=== PATIENT | female | born 1955 | race Caucasian/White ===

== ENCOUNTER 2019-02-10 16:54 | Emergency (ER) | payer MEDICARE, OTHER ==
[2019-02-10] MEDS ORDERED: 0.9 % SODIUM CHLORIDE 1,000 ML BAG IV ONE (17:21)
[2019-02-10] MEDS ORDERED: ONDANSETRON HCL IV 4 MG/2 ML VIAL IV ONE (17:21)
[2019-02-10] MEDS ORDERED: ACETAMINOPHEN 1,000 MG/100 ML BTL IVPB ONE (17:23)
--- NOTE | 2019-02-10 17:27 | Emergency Department Record ---
History of Present Illness - General Chief Complaint: Back Pain/Injury Stated Complaint: BACK PAIN AND NAUSEA Time Seen by Provider: 02/10/19 17:09 Source: Patient Mode of Arrival: Ambulatory Limitations: No limitations - History of Present Illness Initial Comments: The patient is here due to not feeling well for 3 weeks which has gotten a lot worse the last few days. She has had intermittent aching L flank pain for the 3 weeks with nausea, fatigue and anorexia. The pain does radiate around the side to near the spine at times. The patient has had a significant lack of energy and also has had a gradually worsening frontal TREJO L>R side for a week. There has been no fever, neck pain, visual changes, vomiting, new diarrhea, or dysuria. The patient does have a hx of significant Ulcerative Colitis but that has not been an issue recently. She did have an abdominal CT on 02/02/19 and that did demonstrate possible chronic appendicitis in the RLQ or a mucocele of the appendix. Since the CT the patient was started on Cipro and Flagyl by her PCP and has denied having any RLQ AP. MD Complaint: Other Onset/Timin -: Week(s) Severity scale (1-10): 8 Consistency: Constant Treatment Prior to Arrival Comment:: Tylenol #3 at 1100 - Related Data Home Medications Medication Instructions Recorded Confirmed Last Taken Acetaminop W/ Codeine 300/30Mg 1 tab PO Q6H 02/10/19 02/10/19 02/10/19 11:00 [Tylenol #3] 2 tab Ciprofloxacin HCl [Cipro] 500 mg PO Q12HR 02/10/19 02/10/19 02/10/19 Cyclobenzaprine HCl [Flexeril] 10 mg PO QHS 02/10/19 02/10/19 1 Day Ago ~02/09/19 Esomeprazole Magnesium [Nexium 20 mg PO DAILY 02/10/19 02/10/19 02/10/19 24Hr] Evolocumab [Repatha Syringe] 140 mg SQ ASDIR 02/10/19 02/10/19 Unknown Ezetimibe 10 mg PO DAILY 02/10/19 02/10/19 02/10/19 Hydroxychloroquine Sulfate 200 mg PO DAILY 02/10/19 02/10/19 02/10/19 [Plaquenil] 200mg Infliximab [Remicade] 100 mg IV MONTHLY 02/10/19 02/10/19 Unknown Levothyroxine Sodium 50 mcg PO DAILY 02/10/19 02/10/19 02/10/19 Mesalamine 1.2 gm PO BID 02/10/19 02/10/19 02/10/19 Metoprolol Succinate 100 mg PO DAILY 02/10/19 02/10/19 02/10/19 Metronidazole [Flagyl] 500 mg PO DAILY 02/10/19 02/10/19 02/10/19 Pitavastatin Calcium [Livalo] 4 mg PO DAILY 02/10/19 02/10/19 02/10/19 Pregabalin [Lyrica] 150 mg PO DAILY 02/10/19 02/10/19 02/10/19 Simethicone [Anti-Gas] 180 mg PO DAILY 02/10/19 02/10/19 Unknown Tramadol HCl 1 tab PO TID PRN 02/10/19 02/10/19 02/10/19 Zolpidem Tartrate 10 mg PO QHS 02/10/19 02/10/19 1 Day Ago ~02/09/19 Allergies Allergy/AdvReac Type Severity Reaction Status Date / Time No Known Drug Allergies Allergy Verified 02/10/19 17:13 Travel Screening - Travel/Exposure Within Last 30 Days Have you traveled within the last 30 days?: No - Travel/Exposure Within Last Year Have you traveled outside the [place] in the last year?: No - Additonal Travel Details Have you been exposed to anyone with a communicable illness?: No - Travel Symptoms Symptom Screening: Headache, Fatigue Review of Systems Constitutional: Reports: Malaise. Denies: Chills, Fever Eyes: Denies: Eye discharge ENT: Denies: Congestion Respiratory: Denies: Cough Cardiovascular: Denies: Chest pain Endocrine: Reports: Fatigue Gastrointestinal: Reports: Nausea. Denies: Diarrhea, Vomiting Genitourinary: Denies: Dysuria Musculoskeletal: Reports: Back pain. Denies: Arthralgia Skin: Denies: Bruising Past Medical History - SOCIAL HISTORY Smoking Status: Former smoker Alcohol Use: None, Occasional Drug Use: None - RESPIRATORY Hx Respiratory Disorders: Yes Hx Pneumonia: Yes (20 years ago) - CARDIOVASCULAR Hx Cardio Disorders: Yes Hx Chest Pain: Yes (10 years ago) Hx Hypertension: Yes - NEURO Hx Neuro Disorders: No - GI Hx GI Disorders: Yes Hx Reflux: Yes Hx Rectal Bleeding: Yes Comment:: ulcerative colitis - Hx Genitourinary Disorders: No - ENDOCRINE Hx Endocrine Disorders: Yes Hx Thyroid Disease: Yes - MUSCULOSKELETAL Hx Musculoskeletal Disorders: Yes Hx Arthritis: Yes (RA) Hx Fibromyalgia: Yes - PSYCH Hx Psych Problems: Yes Hx Anxiety: Yes - HEMATOLOGY/ONCOLOGY Hx Hematology/Oncology Disorders: No Family Medical History Any Significant Family History?: Yes Hx Cancer: Father *Cancer Comment: brain Hx Heart Disease: Father Hx HTN: Mother Physical Exam - General General Appearance: Alert, Oriented x3, Cooperative, No acute distress - Head Head exam: Atraumatic, Normocephalic, Normal inspection - Eye Eye exam: Normal appearance, PERRL - ENT Throat exam: Normal inspection. negative: Tonsillar erythema, Tonsillar exudate - Neck Neck exam: Normal inspection, Full ROM. negative: Tenderness - Respiratory Respiratory exam: Normal lung sounds bilaterally. negative: Respiratory distress - Cardiovascular Cardiovascular Exam: Regular rate, Normal rhythm, Normal heart sounds - GI/Abdominal GI/Abdominal exam: Soft, Tenderness (There is mild LUQ tenderness.). negative: Distended, Rigid - Extremities Extremities exam: Normal inspection, Full ROM, Normal capillary refill. negative: Tenderness - Back Back exam: Reports: Normal inspection. Denies: Paraspinal tenderness, Vertebral tenderness - Neurological Neurological exam: Alert, Normal gait, Oriented X3. negative: Abnormal gait, Altered, Motor sensory deficit - Skin Skin exam: negative: Rash Course Vital Signs 02/10/19 17:01 Temperature 97.8 F Pulse Rate 96 H Respiratory 17 Rate Blood Pressure 162/94 Pulse Ox 100 - Reevaluation(s) Reevaluation #1: The patient is doing better at this time and states the pain is improved. I did discuss the lab and xray results with the patient and did recommend F/U next week due to the Head CT and Abd. CT findings. I also did discuss the findings with Dr. Covarrubias and he would like to see the patient in the office on Thursday. I also did discuss the case with Dr. Reece and he agrees the plan for F/U next week. 02/10/19 19:01 Medical Decision Making - Data Complexity MDM Data: Labs Ordered and/or Reviewed, X-Ray Ordered and/or Reviewed, EKG Ordered and/or Reviewed - Lab Data Result diagrams: 02/10/19 17:40 02/10/19 17:40 - EKG Data -: EKG Interpreted by Me EKG: No Acute Changes (EKG: NSR at 89, possible Q waves III, AVF. 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 Abd CT: neg for LUQ abnormalities. Appendiceal mucoceole. ) Disposition Disposition: Discharge Clinical Impression: Abdominal pain Qualifiers: Abdominal location: left upper quadrant Qualified Code(s): R10.12 - Left upper quadrant pain Disposition: Home, Self-Care Condition: (2) Stable Instructions: Abdominal Pain (ED) Additional Instructions: Please continue your home pain medicines and your regular medicines. Please see your family doctor early next week for recheck and also see Dr. Covarrubias in the [facility] on Thursday. Return to the ER for any worsening symptoms, pain, fever, or vomiting. Referrals: [facility] [Provider Group] Forms: Patient Portal Access Time of Disposition: 19:20 Quality - Quality Measures Quality Measures: N/A - Blood Pressure Screening View Details: Yes Does Patient Have Any of the Following: Active Dx of HTN Blood Pressure Classification: Hypertensive Reading Systolic Measurement: 162 Diastolic Measurement: 94 Screening for High Blood Pressure: Patient Exclusion, Hx of HTN [[id number]]
[2019-02-10 17:49] LABS: ABSOLUTE NEUTROPHIL COUNT 3.86; HEMATOCRIT 44.1 % (35.0-47.0); HEMOGLOBIN 14.2 gm/dl (11.6-16.0); MEAN CELL VOLUME 87.7 fl (81-97); MEAN CORPUSCULAR HEMOGLOBIN 28.2 pg (27-33); MEAN CORPUSCULAR HGB CONC 32.2 g/dl (32-36); MEAN PLATELET VOLUME 10.4 fl (7.4-10.4); PLATELET COUNT 296 K/uL (130-400); RED BLOOD COUNT 5.03 M/uL (3.80-5.40); RED CELL DISTRIBUTION WIDTH 15.1 % (11.5-14.5); WHITE BLOOD COUNT W/O DIFF 6.6 K/uL (4.2-12.2)
[2019-02-10 17:57] LABS: PLATELET ESTIMATE NORMAL (NORMAL)
[2019-02-10 18:03] LABS: BLOOD UREA NITROGEN 5 mg/dL (8-23); CREATININE 0.5 mg/dL (0.5-0.9); EST GLOMERULAR FILTRATION RATE > 60 mL/min; LIPASE 16 U/L (13-60); TOTAL PROTEIN 7.6 g/dL (6.6-8.7)
[2019-02-10 18:05] LABS: GLUCOSE,RANDOM 105 mg/dL (74-109)
[2019-02-10 18:08] LABS: ALBUMIN 4.2 g/dL (4.0-5.0); ALKALINE PHOSPHATASE 61 U/L (35-104); ALT/SGPT 20 U/L (<33); AST/SGOT 31 U/L (10.0-35.0)
[2019-02-10 18:12] LABS: BILIRUBIN,DIRECT < 0.2 mg/dL (0-0.3)
--- NOTE | 2019-02-10 18:22 | CT SCAN REPORT ---
EXAMINATION: CT Head without Contrast EXAM DATE: 02/10/2019 6:10 PM TECHNIQUE: Routine axial CT was acquired from skull base through vertex without contrast. Sagittal an d coronal isotropic reformatted images are reviewed. INDICATION: Chronic TREJO. COMPARISON: None. ENCOUNTER: Not applicable HAND DOMINANCE: Unknown. FINDINGS: No intracranial fluid collection or hemorrhage. Mild bifrontal periventricular hypodensity. Brain and CSF spaces are not otherwise remarkable for age . Basilar artery dolichoectasia, 6 mm diameter. No significant extraneous finding. IMPRESSION: No infarct, mass or hemorrhage Basilar artery dolichoectasia Dictated by: Ben Astudillo MD on 02/10/2019 6:17 PM. .
[2019-02-10 18:26] LABS: URINE APPEARANCE CLEAR; URINE BILIRUBIN NEGATIVE (NEGATIVE); URINE BLOOD NEGATIVE (NEGATIVE); URINE COLOR YELLOW; URINE GLUCOSE (UA) NEGATIVE (NEGATIVE); URINE KETONE NEGATIVE (NEGATIVE); URINE LEUKOCYTE ESTERASE NEGATIVE (NEGATIVE); URINE NITRITE NEGATIVE (NEGATIVE); URINE PROTEIN NEGATIVE (NEGATIVE); URINE UROBILINOGEN 0.2 E.U./dL (0.20 - 1.00)
--- NOTE | 2019-02-10 18:37 | CT SCAN REPORT ---
EXAMINATION: CT Abdomen and Pelvis without IV Contrast EXAM DATE: 02/10/2019 6:10 PM TECHNIQUE: Standard protocol CT imaging of the abdomen and pelvis was performed without intravenous c ontrast. INDICATION: L flank pain COMPARISON: None ENCOUNTER: Not applicable CT ABDOMEN AND PELVIS FINDINGS: Lung Bases: 7 mm calcified granuloma at right lung base. Additional 7 mm calcified granuloma right mi ddle lobe. Calcified right hilar lymph nodes. Mild dependent atelectasis. Hepatobiliary: The liver has a normal size with a smooth surface. All bladder is fairly distended wi th no obvious wall thickening or adjacent inflammation. There may be a 2 mm calculus in the dependent gallbladder. Pancreas: The pancreas is normal. Spleen: Nonenlarged with calcified granulomata. Adrenals: The adrenal glands are normal. Kidneys, Ureters, & Bladder: Both kidneys have a normal size and morphology. There is no hydronephro sis. There are at least 3 small unilocular cysts throughout the left kidney largest in the interpolar region measuring 12 mm. Adjacent slightly hyperdense structure measuring 5 m likely due to benign pr oteinaceous cyst. No intrarenal calculi. Both ureters have a normal course and caliber and the urinar y bladder a normal morphology and uniform wall thickness. No ureteral or bladder calculi are identifi ed. Gastrointestinal: The stomach is nondistended. Small bowel is of normal caliber. The appendix is prob ably seen on coronal image 601, 42. It is contiguous with a low-attenuation partially cystic structur e in the right lower quadrant with some marginal calcification best seen on axial image 2, 141 and co amanda image 60. This measures 3.3 x 3.1 x 3.5 cm and is suspicious for mucocele the appendix. Moderat e fecal material within the transverse colon. The large bowel is within normal limits. Reproductive Organs: Unremarkable Lymphatic System: There is no adenopathy within the abdomen or pelvis. Vasculature: Normal caliber abdominal aorta. Mild calcification. Peritoneum: No free fluid, free air, or inflammation Abdominal wall & Musculoskeletal: No suspicious bone lesions. Assessment of the solid organs, soft tissues, and vascular structures is overall limited on noncontra st imaging, IMPRESSION: 1. No explanation for left flank pain. No calculi or hydronephrosis. No evidence of diverticulitis. 2. There is a low-attenuation partially cystic structure in the right lower quadrant which appears to be contiguous with the appendix and is suspicious for a mucocele of the appendix measuring up to 3.5 cm. 3. Benign Bosniak type I renal cysts as well as probably 1 benign Bosniak type II cyst in the left ki dney. 4. Moderate fecal material in the transverse colon. Dictated by: Andrzej Dong MD on 02/10/2019 6:25 PM. .
== END 2019-02-10 19:37 | disposition home or self-care (01) ==
LOC: ER 16:54
DX: R10.12 Left upper quadrant pain (principal); R11.0 Nausea; Z87.891 Personal history of nicotine dependence; K51.90 Ulcerative colitis, unspecified, without complications; M06.9 Rheumatoid arthritis, unspecified
CPT/HCPCS: 70450; 74176; 80048; 80076; 81003; 83690; 84484; 85027; 85651; 86140; 93005; 93010; 96365; 96375; 99284; 99285; J2405; J7030

== ENCOUNTER 2019-04-04 11:20 | Day surgery (SDC) | payer MEDICARE, OTHER ==
[2019-04-04] MEDS ORDERED: PROPOFOL 10 MG/ML VIAL IV ONE (11:21)
[2019-04-04] MEDS ORDERED: LIDOCAINE 2% MDV (20MG/ML) 20ML VIAL IV ONE (11:21)
--- NOTE | 2019-04-05 09:11 | Operative Note ---
OPERATION: COLONOSCOPY to the cecum and terminal ileum with multiple biopsies and cold snare polypectomy. INDICATION: History of ulcerative colitis. 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 HISTORY: The patient is a very pleasant 64-year-old female who suffers with a long-standing history of ulcerative colitis predominantly involving the left colon. She presented to the emergency department with severe abdominal pain, and CT scan of the abdomen demonstrated what was thought to be an appendiceal mucocele. A subsequent exploratory laparotomy completed by Dr. Covarrubias suggested spread of tumor material throughout the abdomen. She is scheduled to see an oncologic surgeon next week at [facility] in [place] but prior to that, a repeat colonoscopy was requested. The patient had been taking Remicade but this was discontinued due to the possible tumor. She continues with topical mesalamine product. ANESTHESIA: Intravenous sedation was administered by the department of anesthesiology and included Diprivan titrated to effect. PROCEDURE: Following informed consent from this alert individual including a discussion of the risks and benefits of the procedure and an opportunity for the patient to ask questions, the patient was in the left lateral decubitus position. A digital rectal examination was performed. No abnormalities were noted. Following this, the Olympus [id number] video colonoscope was inserted into the rectum without resistance. The rectal mucosa was inflamed with friable mucosa with edema, erythema, and loss of the normal vasculature. There was white exudate noted as well involving the rectum and sigmoid colon. At the proximal sigmoid colon, there was what appeared to be an inflammatory polyp noted which was removed with biopsy forceps. The tissue around the polyp was also biopsied at the site. The colonoscope was then farther advanced up to the level of the cecum without much difficulty. Inflammatory changes were noted in the left colon with edema, erythema, and punctate ulcerations and loss of the normal vasculature and attenuation of the haustra. The transverse colon and ascending colon had a normal-appearing mucosa without ulcerations, erosions, or inflammatory change. The cecum was defined by noting the appendiceal orifice, which appeared to be normal. There were some retained pills noted in the cecum. The ileocecal valve appeared mildly edematous but otherwise unremarkable, and the ileocecal valve was biopsied. The terminal ileum was cannulated for approximately 15 cm and found to be completely normal. From the base of the cecum, the colonoscope was then slowly withdrawn. Random biopsies were taken from throughout the right colon. A second set of biopsies was taken from the descending colon, and the final set of biopsies taken from throughout the sigmoid colon and rectum. Also noted at the base of the cecum was a small 4 mm polyp, which was removed with cold snare polypectomy. The endoscope was then withdrawn back through the rectum. Retroflexion was not accomplished due to the narrowed rectal vault. The instrument was withdrawn. Overall, the preparation was good. The patient tolerated the procedure well and was returned to the recovery area in stable condition. IMPRESSION: 1. Normal terminal ileum. 2. Minimally edematous ileocecal valve, biopsies taken. 3. A 4 mm cecal polyp at the base of the cecum removed with cold snare polypectomy. 4. Fairly normal right colon endoscopically. 5. Evidence of left-sided colitis as described above. Biopsies taken throughout the descending colon and rectosigmoid colon. 6. Inflammatory-appearing polyp at the proximal sigmoid colon removed with biopsy forceps as described above. RECOMMENDATIONS: As mentioned, the patient is scheduled to have surgery in [place] next week. Further recommendations will be forthcoming pending results of biopsy obtained today. Followup will be after surgery. As always, thank you for allowing me to participate in the care of your patient. MARCIE
== END 2019-04-04 14:02 | disposition home or self-care (01) ==
LOC: HOP 11:20
PROVIDERS: ATTEND Internal Medicine Gastroenterology
DX: Z09 Encounter for follow-up examination after completed treatment for conditions other than malignant neoplasm (principal); Z86.010 Personal history of colon polyps; K51.90 Ulcerative colitis, unspecified, without complications; C78.6 Secondary malignant neoplasm of retroperitoneum and peritoneum; E78.5 Hyperlipidemia, unspecified; M06.9 Rheumatoid arthritis, unspecified; E03.9 Hypothyroidism, unspecified; I10 Essential (primary) hypertension; G62.9 Polyneuropathy, unspecified; K52.89 Other specified noninfective gastroenteritis and colitis